=== PATIENT | male | born 1980 | race Two or more races ===

== ENCOUNTER → 2024-08-24 | Emergency (ER) | payer SELFPAY ==
[~2024-08-24] VITALS: Ht 167.6 cm; Wt 70.3 kg
[~2024-08-24] MED LIST: CEPH-570 PO; TDAP [DIPH/PERTUSSIS/TET] 0.5 ML VIAL IM ONE
[2024-08-24 11:40] VITALS: BP 122/81; TEMP 98.2; O2SAT 98
[2024-08-24] MEDS: TDAP [DIPH/PERTUSSIS/TET] 0.5 ML VIAL IM ONE (12:36)
== END | disposition home or self-care (01) ==
LOC: ER 11:35
DX: S61.411A Laceration without foreign body of right hand, initial encounter (principal); W31.89XA Contact with other specified machinery, initial encounter; Y93.89 Activity, other specified; Y92.89 Other specified places as the place of occurrence of the external cause; Y99.8 Other external cause status
CPT/HCPCS: 99283; 12002; 73130; A6403; 90715